=== PATIENT | female | born 1975 | race Caucasian/White ===

== ENCOUNTER 2017-03-11 15:30 | Emergency (ER) | payer MEDICAID ==
[~2017-03-11] VITALS: Ht 157.5 cm; Wt 74.8 kg
[2017-03-11 15:54] VITALS: BP 115/86
--- NOTE | 2017-03-11 16:12 | Emergency Room Report ---
History of Present Illness General Chief Complaint: General Complaint Source: Patient Present Illness HPI Patient presents with dyspnea and increased neck pain. This began after an operation she had for neck fusion. This was a month ago. Denies any cough or fever. There's no chest pain. She's been taking Robaxin. She initially was taking Trout after the operation. Last night the pain was severe in the neck she thinks may be related to the cold weather. Today somewhat better after taking Tylenol. She had hoarseness after the operation but this is resolving. She had an x-ray done of her neck that they saw a shadow. Her MD thinks that there may be some bruising up in the neck. Denies any calf pain, hemoptysis or. Last period was on the . She's had a tubal ligation. Denies dysuria. Denies nausea vomiting diarrhea. Overall, the neck pain is greatly improved. Rated 7/10, aching and muscle tightness, not radiate. No headache. Surgery was at [facility]. Stopped Trout 1 week ago. Shortness of breath happens when she laughs. She feels there may be an anxiety component to it. Also she feels when she exerts herself. She does have asthma but hasn't herself wheezing. She tried her inhaler and it didn't help the shortness of breath. It feels like she is not getting a full breath. She has fibromyalgia. Poor response to Lyrica. Changing MDs and medications to control this. Tramadol not work. 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 Last Menstrual Period: 02/28/17 Reviewed Nursing Documentation: PMH: Agreed, PSxH: Agreed Nursing Documentation-PMH Past Medical History: No History, Except For Review of Systems All Other Systems: negative except mentioned in HPI Physical Exam Vital Signs Date Time Temp Pulse Resp B/P (MAP) Pulse Ox O2 Delivery O2 Flow Rate FiO2 03/11/17 15:31 97.9 99 18 129/69 99 Room Air Sp02 EP Interpretation: reviewed, normal General Appearance: well appearing, no apparent distress, GCS 15 Head: normocephalic Eyes: bilateral eye normal inspection, bilateral eye PERRL ENT: moist mucus membranes Neck: full range of motion, supple, other - scar R anterior Respiratory: chest non-tender, lungs clear, normal breath sounds, other - slight hoarseness (reported improved by RN who saw in January). Cardiovascular #1: regular rate, rhythm, no edema Cardiovascular #2: 2+ radial (R) Gastrointestinal: normal inspection, non-distended Musculoskeletal: back normal, gait/station normal, normal range of motion, no calf tenderness Neurologic: alert, oriented x3, grossly normal Psychiatric: mood/affect normal Skin: normal inspection, warm/dry, other - scar as above Medical Decision Making Diagnostic Impression: Primary Impression: Dyspnea Qualified Codes: R06.09 - Other forms of dyspnea Additional Impression: Recurrent laryngeal nerve palsy ER Course Patient presents with dyspnea after neck surgery 1 month ago. DDx: PE, pneumonia, nerve palsy, anxiety, asthma. No wheezing. Based on exam and pule ox, PE excluded. No evidence of bronchospasm and no response to albuterol use at home. Evaluation with EKG, CXR and labs. Treated with toradol. EKG without injury. CXR normal. Labs unremarkable. Emergent pathology excluded. Consider dyspnea related to nerve palsy. Discussed results with patient and . Patient stable for outpatient observation and treatment. Laboratory Tests Test 03/11/17 16:20 White Blood Count 7.6 K/UL (4.8-10.8) Red Blood Count 4.01 M/UL (4.20-5.40) L Hemoglobin 12.6 G/DL (12.0-16.0) Hematocrit 38.3 % (37.0-47.0) Mean Corpuscular Volume 95 FL (80-99) Mean Corpuscular Hemoglobin 31.4 PG (27.0-31.0) H Mean Corpuscular Hemoglobin Concent 33.0 G/DL (32.0-36.0) Red Cell Distribution Width 12.3 % (11.6-14.8) Platelet Count 335 K/UL (150-450) Mean Platelet Volume 6.2 FL (6.5-10.1) L Neutrophils (%) (Auto) 61.6 % (45.0-75.0) Lymphocytes (%) (Auto) 30.3 % (20.0-45.0) Monocytes (%) (Auto) 6.2 % (1.0-10.0) Eosinophils (%) (Auto) 1.1 % (0.0-3.0) Basophils (%) (Auto) 0.8 % (0.0-2.0) Sodium Level 140 MMOL/L (136-145) Potassium Level 3.6 MMOL/L (3.5-5.1) Chloride Level 103 MMOL/L (98-107) Carbon Dioxide Level 30 MMOL/L (21-32) Anion Gap 7 mmol/L (5-15) Blood Urea Nitrogen 9 mg/dL (7-18) Creatinine 0.8 MG/DL (0.55-1.30) Estimate Glomerular Filtration Rate > 60 mL/min (>60) Glucose Level 119 MG/DL (74-106) H Calcium Level 9.4 MG/DL (8.5-10.1) Total Bilirubin 0.3 MG/DL (0.2-1.0) Aspartate Amino Transferase (AST) 17 U/L (15-37) Alanine Aminotransferase (ALT) 20 U/L (12-78) Alkaline Phosphatase 60 U/L (46-116) Total Creatine Kinase 66 U/L (26-308) Total Protein 7.9 G/DL (6.4-8.2) Albumin 3.9 G/DL (3.4-5.0) Globulin 4.0 g/dL Albumin/Globulin Ratio 1.0 (1.0-2.7) EKG Diagnostic Results Rate: normal Rhythm: NSR ST Segments: no acute changes Rhythm Strip Diag. Results EP Interpretation: yes Rhythm: NSR, no PVC's, no ectopy Chest X-Ray Diagnostic Results Chest X-Ray Diagnostic Results : Chest X-Ray Ordered: Yes # of Views/Limited/Complete: 1 View Indication: Shortness of Breath EP Interpretation: Yes Interpretation: no consolidation, no effusion, no pneumothorax, no acute cardiopulmonary disease Impression: No acute disease Electronically Signed by: Carroll Rosario MD Last Vital Signs Date Time Temp Pulse Resp B/P (MAP) Pulse Ox O2 Delivery O2 Flow Rate FiO2 03/11/17 19:03 98.7 92 17 114/64 100 Room Air Status: improved Disposition: HOME, SELF-CARE Condition: Improved Scripts Diclofenac Sodium (SOLARAZE) 100 Gm Gel..gram. 1 APPLIC TP BID Y for For Pain, #100 GM Prov: Carroll Rosario M.D. 03/11/17 Hydrocodone Bit/Acetaminophen 5-325* (NORCO 5-325*) 1 Each Tablet 1 TAB ORAL Q6H Y for For Pain, #12 TAB 0 Refills Prov: Carroll Rosario M.D. 03/11/17 Carroll Rosario M.D. Mar 11, 2017 16:12
[2017-03-11] MEDS ORDERED: Ketorolac 30mg Inj IV ONE (16:15)
[2017-03-11 16:45] LABS: BASOPHILS % (AUTO) 0.8 % (0.0-2.0); EOSINOPHILS % (AUTO) 1.1 % (0.0-3.0); HEMATOCRIT 38.3 % (37.0-47.0); HEMOGLOBIN 12.6 G/DL (12.0-16.0); LYMPHOCYTES % (AUTO) 30.3 % (20.0-45.0); MEAN CORPUSCULAR VOLUME 95 FL (80-99); MONOCYTES % (AUTO) 6.2 % (1.0-10.0); NEUTROPHILS % (AUTO) 61.6 % (45.0-75.0); PLATELET COUNT 335 K/UL (150-450); RED BLOOD COUNT 4.01 M/UL (4.20-5.40); RED CELL DISTRIBUTION WIDTH 12.3 % (11.6-14.8); WHITE BLOOD COUNT 7.6 K/UL (4.8-10.8)
[2017-03-11 17:22] LABS: ANION GAP 7 mmol/L (5-15); BLOOD UREA NITROGEN 9 mg/dL (7-18); CALCIUM 9.4 MG/DL (8.5-10.1); CARBON DIOXIDE 30 MMOL/L (21-32); CHLORIDE 103 MMOL/L (98-107); CREATININE 0.8 MG/DL (0.55-1.30); POTASSIUM 3.6 MMOL/L (3.5-5.1); SODIUM 140 MMOL/L (136-145)
[2017-03-11 17:27] LABS: ALANINE AMINOTRANSFERASE 20 U/L (12-78); ALBUMIN 3.9 G/DL (3.4-5.0); ALKALINE PHOSPHATASE 60 U/L (46-116); ASPARTATE AMINO TRANSFERASE 17 U/L (15-37); BILIRUBIN,TOTAL 0.3 MG/DL (0.2-1.0); CREATINE KINASE 66 U/L (26-308)
[2017-03-11 18:11] VITALS: BP 113/65
[2017-03-11] MEDS ORDERED: SOLARAZE100 GM TP (18:35)
[2017-03-11] MEDS ORDERED: NORCO 5-325 TA1 EACH ORAL (18:35)
[2017-03-11 19:00] VITALS: BP 114/64
[2017-03-11 19:03] VITALS: BP 114/64
--- NOTE | 2017-03-12 09:51 | Diagnostic Imaging Report ---
Indication: Dyspnea Technique: XRAY Chest 1v Comparison: None Findings: Portions of the right costophrenic sulcus are excluded from view. Heart size and mediastinal contours are within normal limits given technique. There is no focal consolidation, pneumothorax or pleural effusion. Osseous structures demonstrate no acute abnormality. Impression: Portions of the right costophrenic sulcus excluded from view. Within this limitation, no radiographic evidence of acute cardiopulmonary disease.
--- NOTE | 2017-03-26 14:03 | Cardiology Report ---
APPROVED REPORT EKG Measurement Heart [id number] Normal sinus rhythm Normal ECG
== END 2017-03-11 19:03 | disposition home or self-care (01) ==
LOC: EMR 16:23
DX: R06.00 Dyspnea, unspecified (principal); J38.00 Paralysis of vocal cords and larynx, unspecified; Z98.890 Other specified postprocedural states; M79.7 Fibromyalgia
CPT/HCPCS: 36415; 71045; 80053; 82550; 85025; 93005; 96374; 99284; J1885

== ENCOUNTER 2017-08-13 17:51 | Emergency (ER) | payer MEDICAID ==
[~2017-08-13] VITALS: Ht 157.5 cm; Wt 74.8 kg
[~2017-08-13 17:51] MED LIST: NORCO 5-325 TA1 EACH ORAL; SOLARAZE100 GM TP
[2017-08-13] MEDS ORDERED: CYCLOBENZAPRINE10 MG ORAL (18:59)
[2017-08-13 19:00] VITALS: BP 137/84
--- NOTE | 2017-08-13 19:00 | Emergency Room Report ---
History of Present Illness General Chief Complaint: Pain Source: Patient, Medical Record Present Illness HPI 42-year-old female patient presents ER requesting medication refill for Flexeril. Reports been taking Flagyl for the past 2 years for neck pain. Reports has not taken medication for the past 10 days due to difficulties with her insurance referring her to her senior back end java developer where she can get a prescription filled. Reports that her PCP does not fill the prescription. Denies worsening of symptoms. Denies new injury. Denies radiation of pain. Denies other acute symptoms. Denies fever, chest pain, shortness of breath. Reports pain symptoms ahave been present while not taking medication. Allergies: Coded Allergies: No Known Allergies (Unverified , 03/11/17) Patient History Past Medical History: see triage record Last Menstrual Period: 08/12/17 Reviewed Nursing Documentation: PMH: Agreed; PSxH: Agreed Nursing Documentation-PMH Past Medical History: No History, Except For Review of Systems All Other Systems: negative except mentioned in HPI Physical Exam Vital Signs Date Time Temp Pulse Resp B/P (MAP) Pulse Ox O2 Delivery O2 Flow Rate FiO2 08/13/17 17:55 98.1 78 18 137/84 98 Room Air 98.1 Sp02 EP Interpretation: reviewed, normal General Appearance: well appearing, no apparent distress, alert, GCS 15, non- toxic Head: normocephalic, atraumatic Eyes: bilateral eye normal inspection, bilateral eye PERRL ENT: hearing grossly normal, normal pharynx, no angioedema, normal voice, uvula midline, moist mucus membranes Neck: full range of motion, no bony tend Respiratory: lungs clear, normal breath sounds, no rhonchi, no respiratory distress, no accessory muscle use, no wheezing, speaking full sentences Cardiovascular #1: regular rate, rhythm, no edema Genitourinary: no CVA tenderness Musculoskeletal: back normal, digits/nails normal, gait/station normal, normal range of motion, non-tender Neurologic: alert, oriented x3, responsive, motor strength/tone normal, sensory intact Psychiatric: mood/affect normal Skin: no rash Medical Decision Making PA Attestation Dr. Venegas is my supervising Physician whom patient management has been discussed with. Diagnostic Impression: Primary Impression: Encounter for medication refill ER Course Pt. presents to the ED requesting prescription refill. Multiple differentials were considered. Vital signs: are WNL, pt. is afebrile ORDERS: requesting refill of 10 mg of Flexeril. Reports been taking for 2 years without complications. Denies side effects. PE benign, full range of motion, no focal neuro deficits, no point tenderness, bony step-off. Informed patient will provide refill medication at this time. Needs to follow- up with PCP and senior back end java developer for further treatment. Patient states she'll follow-up with them in get further refills. patient resting complaining of acute distress contacts., Patient okay for discharge to home. Contact primary care provider for further treatment. Informed patient ER cannot provide refills in the future; followup, management and prescription of long-term medications must be performed by primary care provider. DISCHARGE: Rx provided for Flexeril At this time pt is stable for d/c to home. Patient is resting comfortably, in no acute distress, nontoxic appearing, talking without difficulty. Patient to take medications as instructed Will provide with patient care instructions and any necessary prescriptions. Care plan and follow-up instructions provided. Patient instructed to follow-up with primary care provider in 3 - 5 days. Patient questions asked and answered. Patient reports understanding and agreement to treatment plan. ER precautions given. Patient instructed to return to ER immediately for any new or worsening of symptoms including but not limited to increasing SOB, persistent fever. - Please note that this Emergency Department Report was dictated using [employer] brake repair technology software, occasionally this can lead to erroneous entry secondary to interpretation by the dictation equipment. Last Vital Signs Date Time Temp Pulse Resp B/P (MAP) Pulse Ox O2 Delivery O2 Flow Rate FiO2 08/13/17 17:55 98.1 78 18 137/84 98 Room Air 98.1 Disposition: HOME, SELF-CARE Condition: Stable Scripts Cyclobenzaprine Hcl* (FLEXERIL*) 10 Mg Tablet 10 MG ORAL THREE TIMES A DAY, #30 TAB Prov: Leroy Huber 08/13/17 Patient Instructions: Cervical Sprain Additional Instructions: Patient instructed to follow up with primary care provider 3-5 and discuss further referral and imaging at that time. Patient instructed on rest, ice and heat. Do not take muscle relaxant prior to drinking, driving, or operating heavy machinery. Take medications as directed. Patient questions asked and answered. ER precautions given, patient instructed to return to ER immediately for any new or worsening of symptoms. Leroy Huber Aug 13, 2017 19:00
[2017-08-13 19:01] VITALS: BP 137/84
== END 2017-08-13 19:06 | disposition home or self-care (01) ==
LOC: EMR 19:06
DX: Z76.0 Encounter for issue of repeat prescription (principal)
CPT/HCPCS: 99283